=== PATIENT | male | born 1935 | race Caucasian/White ===

== ENCOUNTER 2022-07-06 00:03 | Inpatient (IN) | payer MEDICARE, OTHER ==
[~2022-07-06] VITALS: Ht 167.6 cm; Wt 61.7 kg
--- NOTE | 2022-07-06 00:08 | NUR ---
manoj from [facility], had coffee ground emesis today x 1. PT A/OX1. TOLERATING R/A WELL WITH NO RESP DISTRESS.
[2022-07-06] MEDS ORDERED: PANTOPRAZOLE 40 MG VIAL ONE (00:39)
--- NOTE | 2022-07-06 00:39 | NUR ---
RAC #18G S/L BLOOD COLLECTED AND SENT TO LAB
--- NOTE | 2022-07-06 00:40 | NUR ---
COVID ANTIGEN SWAB COLLECTED AND SENT TO LAB
[2022-07-06] MEDS ORDERED: IV NS 0.9% 1,000 ML BAG IV ONE (01:00)
[2022-07-06] MEDS ORDERED: PANTOPRAZOLE 40 MG VIAL IV ONE (01:00)
[2022-07-06 01:04] LABS: BASOPHILS % (AUTO) 0.2 % (0.0-2.0); EOSINOPHILS % (AUTO) 0.3 % (0.0-6.0); HEMATOCRIT 37 % (39-51); HEMOGLOBIN 11.6 g/dL (13.5-17.5); LYMPHOCYTES # (AUTO) 0.8 K/uL (0.8-4.8); LYMPHOCYTES % (AUTO) 16.7 % (20.0-44.0); MEAN CORPUSCULAR HGB CONC 31 g/dl (31.0-36.0); MEAN CORPUSCULAR VOLUME 81 fL (80-96); MONOCYTES # (AUTO) 0.2 K/uL (0.1-1.30); MONOCYTES % (AUTO) 4.7 % (2.0-12.0); NEUTROPHILS # (AUTO) 3.7 K/uL (1.8-8.9); NEUTROPHILS % (AUTO) 78.1 % (43.0-81.0); PLATELET COUNT (AUTO) 332 K/uL (150-450); RED BLOOD CELL COUNT(AUTO) 4.59 MIL/uL (4.5-6.0); WHITE BLOOD COUNT (AUTO) 4.8 K/uL (4.3-11.0)
[2022-07-06] MEDS ORDERED: IOHEXOL-300 100 ML VIAL IV ONE (01:11)
[2022-07-06 01:13] LABS: CALCIUM, SERUM 8.9 mg/dL (8.5-10.1); CARBON DIOXIDE 25 mmol/L (21-32); CHLORIDE 105 mmol/L (98-107); CREATININE 2.2 mg/dL (0.6-1.3); GLUCOSE 168 mg/dL (74-106); POTASSIUM 4.4 mmol/L (3.5-5.1); SODIUM SERUM 140 mmol/L (136-145); UREA NITROGEN, BLOOD 55 mg/dL (7-18)
[2022-07-06 01:24] LABS: ALANINE AMINOTRANSFERASE 7 U/L (12-78); ALBUMIN 3.1 g/dL (3.4-5.0); ALKALINE PHOSPHATASE 193 U/L (46-116); ASPARTATE AMINOTRANSFERASE 16 U/L (15-37); BILIRUBIN,DIRECT 0.5 mg/dL (0.0-0.2); BILIRUBIN,TOTAL 1.2 mg/dL (0.2-1.0); LIPASE 51 U/L (73-393); TOTAL PROTEIN, SERUM 7.3 g/dL (6.4-8.2)
--- NOTE | 2022-07-06 02:04 | NUR ---
MRSA SWAB COLLECTED AND SENT TO LAB. PATIENT'S BELONGINGS LIST DONE.
--- NOTE | 2022-07-06 02:49 | NUR ---
room 326-2
--- NOTE | 2022-07-06 03:51 | NUR ---
REPORT GIVEN TO ALEJANDRO Arizmendi RN FOR ROBBY
[2022-07-06] MEDS ORDERED: ACETAMINOPHEN 325 MG TABLET PO PRN ×2 (04:00→10:00)
[2022-07-06] MEDS ORDERED: ONDANSETRON HCL/PF 4 MG/2 ML VIAL IVP PRN (04:00)
[2022-07-06] MEDS ORDERED: MAGNESIUM HYDROXIDE 30 ML UDC PO PRN ×2 (04:00→10:00)
[2022-07-06] MEDS ORDERED: Z GUARD REMEDY 4 OZ OINT TP PRN (04:00)
[2022-07-06] MEDS ORDERED: MAG HYDROX/AL HYDROX/SIMETH 30 ML UDC PO PRN (04:00)
[2022-07-06 04:30] VITALS: BP 140/65
--- NOTE | 2022-07-06 04:32 | NUR ---
PT Transferring to room 3W 326-2. VSS. Connected Pt To POX and monitor.
--- NOTE | 2022-07-06 04:40 | NUR ---
MACHINIST CLASS B ADMITTING NOTE PATIENT TRANSFERRED FROM ER TO [facility] ROOM 326 - 2 VIA GURNEY AT 0430H; PATIENT IS A/O X 1, CONFUSED; ON ROOM AIR, TOLERATING WELL, BREATHING EVENLY AND NO RESPIRATORY DISTRESS NOTED; WITH IV ACCESS ON RAC G18 SALINE LOCK; VITAL SIGNS TAKEN; ORIENTED TO ROOM AND STAFF; HOOKED TO PUBLIC POLICY PROFESSOR, NO CARDIAC DISTRESS NOTED; SAFETY PRECAUTIONS IMPLEMENTED, BED IN LOW POSITION, LOCKED, SIDE RAILS UP X 3,CALL LIGHT WITHIN EASY REACH; WILL CONTINUE TO MONITOR THROUGHOUT SHIFT
[2022-07-06] MEDS: PANTOPRAZOLE 40 MG VIAL IV SCH ×2 (04:45→20:46)
--- NOTE | 2022-07-06 04:45 | NUR ---
SIGNALMAN NOTE PROTONIX NOT ADMINISTERED BECAUSE MEDICATION WAS GIVEN 0046H AT ER PRIOR TO ADMISSION
[2022-07-06] MEDS: IV NS 0.9% 1,000 ML IV PRN ×2 (05:54→13:59)
--- NOTE | 2022-07-06 06:39 | NUR ---
TIRE ROOM SUPERVISOR CLOSING NOTE PATIENT IS A/O X 1, CONFUSED; ON ROOM AIR, TOLERATING WELL, BREATHING EVENLY AND NO RESPIRATORY DISTRESS NOTED; WITH IV ACCESS ON RAC G18 RUNNING NORMAL SALINE X 120 ML/HR; HOOKED TO DISPATCHER CHIEF COAL SLURRY CURRENTLY READING SINUS RHYTHM WITH BBB AND INVERTED T WAVE 84 BPM, NO CARDIAC DISTRESS NOTED; SAFETY PRECAUTIONS IMPLEMENTED, BED IN LOW POSITION, LOCKED, SIDE RAILS UP X 3,CALL LIGHT WITHIN EASY REACH; WILL ENDORSE TO AM NURSE FOR ROBBY
[2022-07-06 07:03] LABS: HEMOGLOBIN 10.5 g/dL (13.5-17.5)
--- NOTE | 2022-07-06 07:51 | NUR ---
SIDE PANEL HANGER OPENING NOTE RECEIVED PT ASLEEP IN BED, EASILY AROUSED. PT IS A/OX1, CONFUSED. REORIENTED PT NEEDED. ON ROOM AIR, TOLERATING WELL. NO SOB NOTED. NOT IN ANY SIGN OF RESPIRATORY DISTRESS. PT IS ON CARDIAC TELE MONITOR WITH CURRENT READING OF SINUS RHYTHM WITH BBB, HR 86. NO C/O CARDIAC DISTRESS VOICED OUT AT THIS TIME. IV ACCESS ON RAC G#18 INTACT AND PATENT WITH NS INFUSING AT 120ML/HR. SAFETY MEASURES IN PLACE: BED IN LOWEST AND LOCKED POSITION, SIDE RAILS UPX2, BED ALARM ON, AND CALL LIGHT WITHIN REACH. WILL CONTINUE TO MONITOR PT.
[2022-07-06] MEDS ORDERED: DOCU-141 PO (08:38)
[2022-07-06] MEDS ORDERED: HYDR-4303 PO (08:38)
[2022-07-06] MEDS ORDERED: OLAN2.5T3 PO (08:38)
[2022-07-06] MEDS ORDERED: ACET-868 PO (08:38)
[2022-07-06] MEDS ORDERED: BENZ0.5T43 PO (08:38)
[2022-07-06] MEDS ORDERED: CARB1TAB21 PO (08:38)
[2022-07-06] MEDS ORDERED: ENOX40DI SQ (08:38)
[2022-07-06] MEDS ORDERED: MULT-447 PO (08:38)
[2022-07-06] MEDS ORDERED: MAGN400O6 PO (08:38)
[2022-07-06] MEDS ORDERED: AMIN30LI2 PO (08:38)
[2022-07-06] MEDS ORDERED: DIVA250T4 PO (08:38)
[2022-07-06] MEDS ORDERED: PANT40TA2 PO (08:38)
[2022-07-06] MEDS ORDERED: DONE5TAB34 PO (08:38)
[2022-07-06] MEDS ORDERED: CLOP75TA15 PO (08:38)
[2022-07-06] MEDS ORDERED: OLAN5TAB3 PO (08:38)
[2022-07-06] MEDS ORDERED: CITA10TA17 PO (08:38)
[2022-07-06] MEDS ORDERED: ATOR40TA PO (08:38)
[2022-07-06] MEDS: OLANZAPINE 2.5 MG TABLET PO SCH (11:17)
[2022-07-06] MEDS: METOPROLOL TARTRATE 50 MG TABLET PO SCH ×2 (11:18→20:51)
[2022-07-06] MEDS: ENOXAPARIN SODIUM 30 MG/0.3 ML DISP.SYRIN SQ SCH (11:19)
[2022-07-06 11:33] LABS: THYROID STIMULATING HORMONE 2.23 uIU/mL (0.358-3.74)
[2022-07-06] MEDS: DIVALPROEX SODIUM 250 MG TABLET.DR PO SCH ×4 (13:10→20:47)
[2022-07-06] MEDS: CARBIDOPA/LEVODOPA 25/100 MG 1 UDTAB PO SCH ×4 (13:11→20:46)
[2022-07-06] MEDS: DOCUSATE SODIUM 100 MG CAPSULE PO SCH ×2 (16:22→16:41)
[2022-07-06] MEDS: BENZTROPINE MESYLATE (1 MG) 1 MG TABLET PO SCH ×2 (16:22→16:41)
--- NOTE | 2022-07-06 16:46 | NUR ---
RN NOTE PT REFUSED AND SPIT OUT ALL HIS MEDICATIONS SCHEDULED AT 1700. EXPLAINED RISK AND BENEFITS, PT STILL REFUSED.
--- NOTE | 2022-07-06 19:07 | NUR ---
HOME HEALTH OUTREACH COORDINATOR CLOSING NOTE PT ASLEEP IN BED, EASILY AROUSED. PT IS A/OX1, CONFUSED. REORIENTED PT NEEDED. ON ROOM AIR, TOLERATING WELL. NO SOB NOTED. NOT IN ANY SIGN OF RESPIRATORY DISTRESS. PT IS ON CARDIAC TELE MONITOR WITH CURRENT READING OF SINUS RHYTHM WITH BBB, HR 84. NO C/O CARDIAC DISTRESS VOICED OUT AT THIS TIME. PT PULLED OUT HIS IV ACCESS. ATTEMPTED TO REINSERT BUT PT WAS COMBATIVE AND TRYING TO PUNCH THE NURSE. PT WAS ALSO TRYING TO SPIT AT THE NURSE. ENDORSED TO BUNKER WORKER NURSE TO TRY TO OFFER PT AND REINSERT IV. ALL NEEDS ATTENDED. KEPT CLEAN AND COMFORTABLE AT ALL TIMES. TURNED AND REPOSITIONED Q2HRS AND NEEDED. SAFETY MEASURES IN PLACE: BED IN LOWEST AND LOCKED POSITION, SIDE RAILS UPX2, BED ALARM ON, AND CALL LIGHT WITHIN REACH. ENDORSED TO BUNKER WORKER NURSE FOR ROBBY.
--- NOTE | 2022-07-06 19:24 | NUR ---
TELEMARKETING MANAGER OPENING NOTE RECEIVED PATIENT ON BED, AWAKE, ALERT AND ORIENTED X1 WITH CONFUSION. AFEBRILE AND NOT IN ANY FORM OF ACUTE DISTRESS. BREATHING EVEN AND NON LABORED. NO C/O PAIN OR DISCOMFORT. PER REPORT, PATIENT PULLED OUT HIS IV LINE AND BECAME COMBATIVE WHEN THE NURSE TRIED TO REINSERT ANOTHER LINE. PROVIDED SAFE AND CALM ENVIRONMENT. SAFETY MEASURES IN PLACE. KEPT BED IN LOCKED AND IN LOW POSITION. SIDE RAILS UP X2. BED ALARM ON. CALL LIGHT WITHIN EASY REACH.
[2022-07-06 20:00] VITALS: BP_SYST 118; BP_SYST 140; BP_DIAS 64; BP_DIAS 68
--- NOTE | 2022-07-06 20:55 | NUR ---
BALANCE AND HAIRSPRING ASSEMBLER NOTE TRIED TO REINSERT ANOTHER IV LINE TO ADMINISTER IV MEDICATION AND IV HYDRATION ORDERED BUT PATIENT TRIED TO PUNCH, KICK AND SPIT ON THE LICENSED NURSES DESPITE EXPLAINING PROCEDURE IN A CALM MANNER. TRIED TO CALL OTHER LICENSED NURSE TO HOLD THE PATIENT WHILE DOING REINSERTION BUT PATIENT WAS STRONG ENOUGH. NOTIFIED CIVIL DRAFTING TECHNICIAN KE AND ORDERED FOR SOFT WRIST RESTRAINTS. ORDER NOTED AND CARRIED OUT. SUCCESSFULLY REINSERTED IV LING ON L FOREARM G22, TOLERATED THE PROCEDURE WELL.
[2022-07-06] MEDS: OLANZAPINE 5 MG TABLET PO SCH (21:06)
[2022-07-06] MEDS: DONEPEZIL 5 MG TABLET PO SCH (21:06)
--- NOTE | 2022-07-06 21:30 | NUR ---
ROOM SERVICE WAITER/WAITRESS NOTE SPOKE WITH GRAND DAUGHTER BRANT TO GIVE UPDATE AND INFORM ABOUT PUTTING THE PATIENT ON SOFT WRIST RESTRAINTS ORDERED FOR SAFETY AND MEDICAL MANAGEMENT. SHE SUGGESTED TO GIVE MEDICATIONS ON TIME TO MANAGE BEHAVIOR ISSUES BUT INFORMED HER THAT PATIENT ALSO TRIES TO SPIT OUT HIS MEDICINE DESPITE EXPLAINING THE IMPORTANCE OF TAKING IT.
--- NOTE | 2022-07-06 21:50 | NUR ---
LABORER POWERHOUSE NOTE RECEIVED AN ORDER FROM DR. SHAFER TO DO STRAIGHT CATHETER IF UNABLE TO GET URINE SAMPLE FROM THE PATIENT. ORDER NOTED AND CARRIED OUT.
[2022-07-06 22:43] LABS: BILIRUBIN,URINE 1+ (NEGATIVE); COLOR,URINE DARK YELLOW (YELLOW); LEUKOCYTE ESTERASE ,URINE NEGATIVE (NEGATIVE); NITRITE, URINE NEGATIVE (NEGATIVE); PH,URINE 5.5 (5.0-8.0); PROTEIN,URINE NEGATIVE (NEGATIVE); UGLUCOSE NEGATIVE (NEGATIVE)
[2022-07-06 22:46] LABS: OCCULT BLOOD STOOL NEGATIVE (NEGATIVE)
[2022-07-06 22:47] LABS: RBC,URINE 0-2 /HPF (0-2); WBC,URINE 0-2 /HPF (0-3)
[2022-07-06 22:48] LABS: BACTERIA,URINE Rare /HPF (None Seen); CREATININE, URINE 123.3 MG/DL (30.0-125.0); SQUAMOUS EPITHELIAL CELL,UR Few /HPF (None Seen); URIC ACID CRYSTALS,URINE Many /HPF (None Seen)
[2022-07-07] VITALS: BP 144/67
[2022-07-07] MEDS: IV NS 0.9% 1,000 ML IV PRN (00:20)
[2022-07-07 04:00] VITALS: BP 142/76
--- NOTE | 2022-07-07 04:42 | NUR ---
FUNDING COORDINATOR NOTE RECEIVED CALL FROM LAB AND LATEST TROPONIN LEVEL IS 222. RELAYED TO PHARMACY HELPER [facility] AND AWAITING FOR ADVISE. PATIENT IS CURRENTLY ON LOVENOX 30MG DAILY.
--- NOTE | 2022-07-07 04:45 | NUR ---
HEALTH AND SAFETY INSPECTOR NOTE NOTIFIED EMG TECHNICIAN MATTIE ABOUT LATEST TROPONIN RESULT WITH NO NEW ORDER MADE.
[2022-07-07 05:50] LABS: BASOPHILS % (AUTO) 0.2 % (0.0-2.0); EOSINOPHILS % (AUTO) 2.7 % (0.0-6.0); HEMATOCRIT 29 % (39-51); HEMOGLOBIN 8.9 g/dL (13.5-17.5); LYMPHOCYTES # (AUTO) 0.9 K/uL (0.8-4.8); LYMPHOCYTES % (AUTO) 26.5 % (20.0-44.0); MEAN CORPUSCULAR HGB CONC 30 g/dl (31.0-36.0); MEAN CORPUSCULAR VOLUME 83 fL (80-96); MONOCYTES # (AUTO) 0.2 K/uL (0.1-1.30); MONOCYTES % (AUTO) 7.6 % (2.0-12.0); PLATELET COUNT (AUTO) 246 K/uL (150-450); RED BLOOD CELL COUNT(AUTO) 3.54 MIL/uL (4.5-6.0); WHITE BLOOD COUNT (AUTO) 3.2 K/uL (4.3-11.0)
[2022-07-07 06:05] LABS: ALANINE AMINOTRANSFERASE 11 U/L (12-78); ALBUMIN 2.5 g/dL (3.4-5.0); ALKALINE PHOSPHATASE 165 U/L (46-116); ASPARTATE AMINOTRANSFERASE 14 U/L (15-37); BILIRUBIN,TOTAL 0.9 mg/dL (0.2-1.0); CALCIUM, SERUM 8.5 mg/dL (8.5-10.1); CARBON DIOXIDE 24 mmol/L (21-32); CHLORIDE 117 mmol/L (98-107); CREATININE 1.4 mg/dL (0.6-1.3); GLUCOSE 117 mg/dL (74-106); MAGNESIUM 2.1 mg/dL (1.8-2.4); PHOSPHORUS 3.1 mg/dL (2.5-4.9); POTASSIUM 4.7 mmol/L (3.5-5.1); SODIUM SERUM 149 mmol/L (136-145); TOTAL PROTEIN, SERUM 5.9 g/dL (6.4-8.2); UREA NITROGEN, BLOOD 40 mg/dL (7-18)
--- NOTE | 2022-07-07 06:30 | NUR ---
BRICK SETTER OPERATOR CLOSING NOTE PATIENT ON BED, SLEEPING INTERMITTENTLY. AFEBRILE AND NOT IN ANY FORM OF ACUTE DISTRESS. BREATHING EVEN AND NON LABORED. NO C/O PAIN OR DISCOMFORT THROUGHOUT THE SHIFT. ON TELE MONITORING WITH CURRENT READING OF SR 64 WITH BBB. WITH IV ACCESS ON L FOREARM 22G RUNNING WITH NS AT 120ML/HR. WITH BILATERAL SOFT WRIST RESTRAINTS, NOTED WITH GOOD SKIN INTEGRITY AND CIRCULATION IN THE AREA. MEDICATED ORDERED. TURNED AND REPOSITIONED EVERY 2 HOURS AND TOLERATED TO PROMOTE PROPER CIRCULATION AND COMFORT. SAFETY MEASURES IN PLACE. KEPT BED IN LOCKED AND IN LOW POSITION. SIDE RAILS UP X2. BED ALARM ON. CALL LIGHT WITHIN EASY REACH. ALL NURSING NEEDS ATTENDED. ENDORSED TO INCOMING SHIFT FOR CONTINUITY OF CARE.
--- NOTE | 2022-07-07 07:30 | NUR ---
HYDRAULIC SPECIALIST OPENING NOTE RECEIVED PATIENT ON BED, AWAKE, ALERT AND ORIENTED X1 WITH PERIODS OF CONFUSION. ON ROOM AIR TOLERATING WELL. BREATHING EVEN AND NON LABORED. NOT IN DISTRESS. IN NO SIGNS OF PAIN AT THIS TIME VIA FLACC LEVEL OF PAIN. ON TELE MONITOR CURRENTLY READING SINUS RHYTHM WITH BBB AT 82BPM. WITH IV ACCESS AT THE LEFT FOREARM G22 WITH NS AT 120ML/HR INFUSING WELL. SAFETY MEASURES IN PLACE. KEPT BED IN LOCKED AND IN LOW POSITION. SIDE RAILS UP X2. BED ALARM ON. CALL LIGHT WITHIN EASY REACH. WILL CONTINUE TO MONITOR.
[2022-07-07 08:00] VITALS: BP 139/80
[2022-07-07] MEDS: OLANZAPINE 2.5 MG TABLET PO SCH ×4 (08:00→14:25)
[2022-07-07] MEDS ORDERED: IV NS 0.9% 1,000 ML IV PRN (08:02)
[2022-07-07] MEDS: BENZTROPINE MESYLATE (1 MG) 1 MG TABLET PO SCH ×3 (09:00→17:00)
[2022-07-07] MEDS: ENOXAPARIN SODIUM 30 MG/0.3 ML DISP.SYRIN SQ SCH (09:00)
[2022-07-07] MEDS: DIVALPROEX SODIUM 250 MG TABLET.DR PO SCH ×6 (09:00→21:20)
[2022-07-07] MEDS: DOCUSATE SODIUM 100 MG CAPSULE PO SCH ×3 (09:00→17:00)
[2022-07-07] MEDS: METOPROLOL TARTRATE 50 MG TABLET PO SCH ×3 (09:00→21:24)
[2022-07-07] MEDS: CITALOPRAM HYDROBROMIDE 10 MG TABLET PO SCH ×2 (09:00→09:16)
[2022-07-07] MEDS: CARBIDOPA/LEVODOPA 25/100 MG 1 UDTAB PO SCH ×6 (09:00→21:20)
--- NOTE | 2022-07-07 09:00 | NUR ---
RN NOTE PATIENT REFUSED TO TAKE HIS AM MEDS. WHEN OFFERED, HE BECAME COMBATIVE AND SPITS HIS MEDICATION.
[2022-07-07] MEDS: PANTOPRAZOLE 40 MG VIAL IV SCH ×2 (09:15→21:22)
[2022-07-07 12:00] VITALS: BP 144/87
[2022-07-07] MEDS: IV D5/0.45 NACL 1,000 ML IV SCH ×2 (12:13→22:39)
--- NOTE | 2022-07-07 13:00 | NUR ---
RN NOTE PATIENT REFUSED HIS 1300 MEDS AND HAS POOR APPETITE.
[2022-07-07] MEDS: SOD FERRIC GLUC 125 MG in IV NS 0.9% 100 ML IV SCH (14:25)
[2022-07-07 16:00] VITALS: BP 142/83
--- NOTE | 2022-07-07 16:00 | NUR ---
AUTO ELECTRICIAN NOTE PATIENT ON BED, AWAKE, ALERT AND ORIENTED X1, CONFUSED. ON ROOM AIR TOLERATING WELL. BREATHING EVEN AND NON LABORED. NOT IN DISTRESS. IN NO SIGNS OF PAIN AT THIS TIME VIA FLACC LEVEL OF PAIN. ON TELE MONITOR CURRENTLY READING SINUS RHYTHM WITH BBB AT 78BPM. WITH IV ACCESS AT THE LEFT FOREARM G22 WITH D5 1/2NS AT 75ML/HR INFUSING WELL. SAFETY MEASURES IN PLACE. KEPT BED IN LOCKED AND IN LOW POSITION. SIDE RAILS UP X2. BED ALARM ON. CALL LIGHT WITHIN EASY REACH. ENDORSED TO DANIELITO CASANOVA.
--- NOTE | 2022-07-07 16:30 | NUR ---
COLOR PASTE MIXING SUPERVISOR NOTE RECEIVED PATIENT ON BED, AWAKE, ALERT AND ORIENTED X1, CONFUSED. ON ROOM AIR TOLERATING WELL. BREATHING EVEN AND NON LABORED. NOT IN DISTRESS AT MOMENT. IN NO SIGNS OF PAIN AT THIS TIME. ON TELE MONITOR CURRENTLY READING SINUS RHYTHM WITH BBB AT 70S. WITH IV ACCESS AT THE LEFT FOREARM G22 WITH D5 1/2NS AT 75ML/HR INFUSING WELL. SAFETY MEASURES IN PLACE. KEPT BED IN LOCKED AND IN LOW POSITION. SIDE RAILS UP X3. BED ALARM ON. CALL LIGHT WITHIN EASY REACH. WILL CONTINUE TO MONITOR PATIENT.
--- NOTE | 2022-07-07 17:00 | NUR ---
RN NOTE PT REFUSED 1700 MEDICATIONS. EDUCATED PATIENT ON RISKS AND BENEFITS. STILL REFUSING. WILL CONTINUE TO MONITOR.
--- NOTE | 2022-07-07 18:50 | NUR ---
PSYCH COORDINATOR CLOSING NOTE PATIENT AWAKE IN BED. ALERT AND ORIENTED X1 WITH PERIODS OF CONFUSION. BREATHING EVEN AND NON LABORED. NO C/O PAIN OR DISCOMFORT THROUGHOUT THE SHIFT. ON TELE MONITORING WITH CURRENT READING OF SR. WITH IV ACCESS ON L FOREARM 22G RUNNING WITH NS AT 75ML/HR. WITH BILATERAL SOFT WRIST RESTRAINTS, NOTED WITH GOOD SKIN INTEGRITY AND CIRCULATION IN THE AREA. PT REFUSED MEDS. SPITS OUT FOODS AND AGGRESSIVE. TURNED AND REPOSITIONED EVERY 2 HOURS AND TOLERATED TO PROMOTE PROPER CIRCULATION AND COMFORT. SAFETY MEASURES IN PLACE. KEPT BED IN LOCKED AND IN LOW POSITION. SIDE RAILS UP X3. BED ALARM ON. CALL LIGHT WITHIN EASY REACH. ALL NURSING NEEDS ATTENDED. ENDORSED TO INCOMING SHIFT FOR CONTINUITY OF CARE.
--- NOTE | 2022-07-07 19:10 | NUR ---
CHIEF NURSE OPENING NOTE PATIENT IS SLEEPING IN BED, EASILY BEING AROUSED. HE IS CONFUSED. AO X 1. PATIENT IS ON ROOM AIR, NO S/S OF [id number] OR SOB; TOLERATING WELL. PATIENT HAS NO SIGNS OF HAVING PAIN AT THIS MOMENT. IV ACCESS IS AT HIS L FA, #22G, RUNNING D5 1/2 NS @75 ML/HR. IV SITE IS PATENT AND INTACT. PATIENT IS ON EXTERNAL MONITOR. ON THE TELE MONITOR, HIS HEART RHYTHM IS SINUS RHYTHM WITH BBB WITH HR AT 60s. SAFETY MEASURES IN PLACE: BED IS LOCKED AND IN LOWEST POSITION; SIDE RAILS UP X2; BED ALARM IS ON; CALL LIGHT AND TABLE ARE WITHIN EASY REACH. WILL CONTINUE MONITORING THE PATIENT AND PROVIDE THE CARE PATIENT NEEDS.
[2022-07-07 20:00] VITALS: BP 145/69
[2022-07-07] MEDS: DONEPEZIL 5 MG TABLET PO SCH (21:20)
[2022-07-07] MEDS: OLANZAPINE 5 MG TABLET PO SCH (21:21)
[2022-07-08] VITALS: BP 130/60
[2022-07-08 04:00] VITALS: BP 143/82
--- NOTE | 2022-07-08 05:57 | NUR ---
OPTICAL GOODS WORKER NOTE CALLED PATIENT'S DAUGHTER, KAILEY GARCIA, NOTIFIED HER THAT HER DAD HAS BEEN ADMITTED INTO THE [address] [place] [address] ROOM 326-1. ASKED HER TO BRING PATIENT'S MEDICATION LIST AND FEEDING INFORMATION TO THE UNIT. SHE VERBALIZED UNDERSTANDING AND WILL COME TO VISIT AT 0830 TODAY. CHARGE NURSE, DANIELLE, NOTIFIED.
--- NOTE | 2022-07-08 06:53 | NUR ---
ELECTRICAL SYSTEMS DESIGNER CLOSING NOTE PATIENT IS SLEEPING IN BED, EASILY BEING AROUSED. HE IS CONFUSED. AO X 1. PATIENT IS ON ROOM AIR, NO S/S OF DISTRESS OR SOB; TOLERATING WELL. PATIENT HAS NO SIGNS OF HAVING PAIN AT THIS MOMENT. IV ACCESS IS AT HIS L FA, #22G, RUNNING D5 1/2 NS @75 ML/HR. IV SITE IS PATENT AND INTACT. PATIENT IS ON EXTERNAL MONITOR. ON THE TELE MONITOR, HIS HEART RHYTHM IS SINUS RHYTHM WITH BBB WITH HR AT 60s. SAFETY MEASURES IN PLACE: BED IS LOCKED AND IN LOWEST POSITION; SIDE RAILS UP X2; BED ALARM IS ON; CALL LIGHT AND TABLE ARE WITHIN EASY REACH. WILL ENDORSE NEXT SHIFT NURSE FOR CONTINUING PATIENT CARE.
[2022-07-08 07:00] VITALS: BP 143/72
--- NOTE | 2022-07-08 07:06 | NUR ---
BLANKER PRESS OPERATOR OPENING NOTES RECEIVED PATIENT AWAKE IN BED A/Ox1, SUDANESE SPEAKING. ON ROOM AIR, NO S/S OF RESPIRATORY DISTRESS. ON TELE MONITORING SHOWING SINUS EFRA HR 56 W/ BBB. NO S/S OF CHEST PAIN OR DISCOMFORT. PATIENT IV ACCESS L FA #22G RUNNING D5 1/2 NS @75 ML/HR. INTACT AND PATENT. PATIENT HAS BILATERAL SOFT WRIST RESTRAINTS. CIRCULATION WNL AND SKIN INTACT. SKIN ISSUES: BILATERAL LEG SCABS, R WRIST SCABS, L HIP VICKEY. SAFETY MEASURES IN PLACE: BED LOCKED AND IN LOWEST POSITION, SIDE RAILS UPx3, CALL LIGHT WITHIN REACH, HOB ELEVATED. WILL CONTINUE TO MONITOR.
[2022-07-08 07:15] LABS: BASOPHILS % (AUTO) 0.1 % (0.0-2.0); EOSINOPHILS % (AUTO) 2.5 % (0.0-6.0); HEMATOCRIT 29 % (39-51); HEMOGLOBIN 9.2 g/dL (13.5-17.5); LYMPHOCYTES # (AUTO) 0.7 K/uL (0.8-4.8); MEAN CORPUSCULAR HGB CONC 31 g/dl (31.0-36.0); MEAN CORPUSCULAR VOLUME 82 fL (80-96); MONOCYTES # (AUTO) 0.2 K/uL (0.1-1.30); MONOCYTES % (AUTO) 6.6 % (2.0-12.0); NEUTROPHILS # (AUTO) 2.3 K/uL (1.8-8.9); NEUTROPHILS % (AUTO) 69.8 % (43.0-81.0); PLATELET COUNT (AUTO) 226 K/uL (150-450); RED BLOOD CELL COUNT(AUTO) 3.59 MIL/uL (4.5-6.0); WHITE BLOOD COUNT (AUTO) 3.3 K/uL (4.3-11.0)
[2022-07-08 07:30] LABS: ALANINE AMINOTRANSFERASE 8 U/L (12-78); ALBUMIN 2.6 g/dL (3.4-5.0); ALKALINE PHOSPHATASE 166 U/L (46-116); ASPARTATE AMINOTRANSFERASE 13 U/L (15-37); CALCIUM, SERUM 8.5 mg/dL (8.5-10.1); CARBON DIOXIDE 24 mmol/L (21-32); CHLORIDE 112 mmol/L (98-107); CREATININE 1.2 mg/dL (0.6-1.3); GLUCOSE 147 mg/dL (74-106); PHOSPHORUS 2.8 mg/dL (2.5-4.9); POTASSIUM 3.5 mmol/L (3.5-5.1); SODIUM SERUM 144 mmol/L (136-145); UREA NITROGEN, BLOOD 26 mg/dL (7-18)
[2022-07-08 08:07] LABS: *SPE A/G RATIO 0.8 (0.7-1.7); *SPE ALPHA-1-GLOBULIN 0.3 g/dL (0.0-0.4); *SPE ALPHA-2-GLOBULIN 0.7 g/dL (0.4-1.0); *SPE M-SPIKE Not Observed g/dL (Not Observed)
[2022-07-08] MEDS: OLANZAPINE 2.5 MG TABLET PO SCH ×2 (08:17→11:30)
[2022-07-08] MEDS: CARBIDOPA/LEVODOPA 25/100 MG 1 UDTAB PO SCH ×4 (08:18→20:03)
[2022-07-08] MEDS: BENZTROPINE MESYLATE (1 MG) 1 MG TABLET PO SCH ×2 (08:18→16:06)
[2022-07-08] MEDS: CITALOPRAM HYDROBROMIDE 10 MG TABLET PO SCH (08:18)
[2022-07-08] MEDS: PANTOPRAZOLE 40 MG VIAL IV SCH (08:18)
[2022-07-08] MEDS: DIVALPROEX SODIUM 250 MG TABLET.DR PO SCH ×4 (08:18→20:03)
[2022-07-08] MEDS: DOCUSATE SODIUM 100 MG CAPSULE PO SCH ×2 (08:18→16:06)
[2022-07-08] MEDS: METOPROLOL TARTRATE 50 MG TABLET PO SCH ×2 (08:22→20:03)
[2022-07-08] MEDS: ENOXAPARIN SODIUM 30 MG/0.3 ML DISP.SYRIN SQ SCH (09:00)
[2022-07-08] MEDS: IV D5/0.45 NACL 1,000 ML IV SCH (11:30)
[2022-07-08] MEDS: SOD FERRIC GLUC 125 MG in IV NS 0.9% 100 ML IV SCH (13:36)
--- NOTE | 2022-07-08 13:55 | NUR ---
RN NOTES PATIENT SLEEPING IN BED, Q15 MIN CHECKS DONE DUE TO BILATERAL SOFT WRIST RESTRAINTS. SKIN INTACT, CIRCULATION WNL. WILL CONTINUE TO MONITOR.
--- NOTE | 2022-07-08 18:57 | NUR ---
HEEL SORTER CLOSING NOTES PATIENT AWAKE IN BED A/Ox1, SURINAMESE SPEAKING. ON ROOM AIR, NO S/S OF RESPIRATORY DISTRESS. ON TELE MONITORING SHOWING SINUS EFRA HR 56 W/ BBB. NO S/S OF CHEST PAIN OR DISCOMFORT. PATIENT IV ACCESS L FA #22G RUNNING D5 1/2 NS @75 ML/HR. INTACT AND PATENT. PATIENT HAS BILATERAL SOFT WRIST RESTRAINTS. CIRCULATION WNL AND SKIN INTACT. SKIN ISSUES: BILATERAL LEG SCABS, R WRIST SCABS, L HIP VICKEY. SAFETY MEASURES MAINTAINED: BED LOCKED AND IN LOWEST POSITION, SIDE RAILS UPx3, CALL LIGHT WITHIN REACH, HOB ELEVATED. WILL ENDORSE TO NEXT SHIFT ANY ROBBY.
--- NOTE | 2022-07-08 19:30 | NUR ---
MANAGEMENT TRAINEE PROGRAM STORES OPENING NOTE RECEIVED PATIENT ON BED, ASLEEP BUT EASY TO AROUSE AND RESPONDS TO VERBAL AND TACTILE STIMULI, FAMILY AT BEDSIDE. AFEBRILE AND NOT IN ANY FORM OF ACUTE DISTRESS. BREATHING EVEN AND NON LABORED. NO C/O PAIN OR DISCOMFORT. WITH IV ACCESS ON LFA 22G RUNNING WITH D5 1/2 NS AT 75ML/HR. ON SOFT WRIST RESTRAINTS, NOTED WITH GOOD SKIN CIRCULATION AND INTEGRITY IN THE AREA. SAFETY MEASURES IN PLACE. KEPT BED IN LOCKED AND IN LOW POSITION. SIDE RAILS UP X2. BED ALARM ON. CALL LIGHT WITHIN EASY REACH.
[2022-07-08] MEDS: PANTOPRAZOLE 40 MG/PACK PACK PO SCH (20:03)
--- NOTE | 2022-07-08 20:04 | NUR ---
SUPERIOR COURT JUSTICE NOTE HELD METOPROLOL PER PROTOCOL SINCE PULSE IS >60. PER REPORT, PATIENT IS ALSO NOTED TO BE BRADYCARDIA WHEN SLEEPING/RESTING.
[2022-07-08] MEDS: OLANZAPINE 5 MG TABLET PO SCH (21:39)
[2022-07-08] MEDS: DONEPEZIL 5 MG TABLET PO SCH (21:39)
[2022-07-09] MEDS: IV D5/0.45 NACL 1,000 ML IV SCH ×2 (01:14→14:49)
--- NOTE | 2022-07-09 04:57 | NUR ---
LOGISTICS ASSOCIATE NOTE PATIENT PULLED OUT HIS IV LINE. REINSERTED ANOTHER ONE ON LEFT ANTECUBITAL 20G. TOLERATED THE PROCEDURE WELL.
--- NOTE | 2022-07-09 06:25 | NUR ---
ANIMAL CARE ASSISTANT CLOSING NOTE PATIENT ON BED, ASLEEP BUT EASY TO AROUSE AND RESPONDS TO VERBAL AND TACTILE STIMULI. AFEBRILE AND NOT IN ANY FORM OF ACUTE DISTRESS. BREATHING EVEN AND NON LABORED. NO C/O PAIN OR DISCOMFORT THROUGHOUT THE SHIFT. ON TELE MONITORING WITH CURRENT READING OF SR 72 WITH BBB. WITH IV ACCESS ON LAC G20 RUNNING WITH D5 1/2 NS AT 75ML/HR. ON SOFT WRIST RESTRAINTS, NOTED WITH GOOD SKIN CIRCULATION AND INTEGRITY IN THE AREA. MEDICATED ORDERED BUT PATIENT TRIED TO SPIT HIS MEDICATIONS, FAMILY MEMBER AT BEDSIDE AND SAID THAT THEY TOO HAVE DIFFICULTY IN GIVING MEDICATIONS WITH PATIENT AT HOME. SAFETY MEASURES IN PLACE. KEPT BED IN LOCKED AND IN LOW POSITION. SIDE RAILS UP X2. BED ALARM ON. CALL LIGHT WITHIN EASY REACH. ALL NURSING NEEDS ATTENDED. ENDORSED TO INCOMING SHIFT FOR CONTINUITY OF CARE.
[2022-07-09 06:43] LABS: BASOPHILS % (AUTO) 0.2 % (0.0-2.0); EOSINOPHILS % (AUTO) 2.6 % (0.0-6.0); HEMATOCRIT 31 % (39-51); HEMOGLOBIN 9.8 g/dL (13.5-17.5); LYMPHOCYTES # (AUTO) 0.7 K/uL (0.8-4.8); MEAN CORPUSCULAR HGB CONC 31 g/dl (31.0-36.0); MEAN CORPUSCULAR VOLUME 82 fL (80-96); MONOCYTES # (AUTO) 0.3 K/uL (0.1-1.30); MONOCYTES % (AUTO) 7.9 % (2.0-12.0); NEUTROPHILS # (AUTO) 2.3 K/uL (1.8-8.9); NEUTROPHILS % (AUTO) 69.3 % (43.0-81.0); PLATELET COUNT (AUTO) 222 K/uL (150-450); RED BLOOD CELL COUNT(AUTO) 3.84 MIL/uL (4.5-6.0); WHITE BLOOD COUNT (AUTO) 3.4 K/uL (4.3-11.0)
[2022-07-09 07:00] VITALS: BP 122/73
[2022-07-09 07:11] LABS: ALBUMIN 2.5 g/dL (3.4-5.0); BILIRUBIN,TOTAL 0.9 mg/dL (0.2-1.0); CALCIUM, SERUM 8.4 mg/dL (8.5-10.1); CREATININE 1.1 mg/dL (0.6-1.3); MAGNESIUM 1.7 mg/dL (1.8-2.4); POTASSIUM 3.4 mmol/L (3.5-5.1); TOTAL PROTEIN, SERUM 5.9 g/dL (6.4-8.2)
--- NOTE | 2022-07-09 07:26 | NUR ---
FOOD BEVERAGE SUPERVISOR OPENING NOTE RECEIVED PT ASLEEP IN BED, EASILY AROUSED. PT IS A/OX1, CONFUSED. REORIENTED PT NEEDED. ON ROOM AIR, TOLERATING WELL. NO SOB NOTED. NOT IN ANY SIGN OF RESPIRATORY DISTRESS. PT IS ON CARDIAC TELE MONITOR WITH CURRENT READING OF SINUS RHYTHM WITH BBB, HR 75. NO C/O CARDIAC DISTRESS VOICED OUT AT THIS TIME. PT NOTED WITH BILATERAL SOFT WRIST RESTRAINTS ORDERED. GOOD CIRCULATION NOTED AND NO SKIN ISSUS. IV ACCESS ON LAC G#20 INTACT AND PATENT WITH D5 1/2 NS INFUSING AT 75ML/HR. SAFETY MEASURES IN PLACE: BED IN LOWEST AND LOCKED POSITION, SIDE RAILS UPX2, BED ALARM ON, AND CALL LIGHT WITHIN REACH. WILL CONTINUE TO MONITOR PT.
[2022-07-09] MEDS ORDERED: POTASSIUM CHLORIDE 20 MEQ TAB.PRT.SR PO SCH (08:00)
[2022-07-09] MEDS: OLANZAPINE 2.5 MG TABLET PO SCH ×2 (08:13→12:00)
[2022-07-09] MEDS: Magnesium 1GM/D5W 100ML PREMIX 100 ML IV SCH ×2 (08:13→09:13)
[2022-07-09] MEDS: ENOXAPARIN SODIUM 30 MG/0.3 ML DISP.SYRIN SQ SCH (09:00)
[2022-07-09] MEDS: CARBIDOPA/LEVODOPA 25/100 MG 1 UDTAB PO SCH ×4 (09:14→21:00)
[2022-07-09] MEDS: DIVALPROEX SODIUM 250 MG TABLET.DR PO SCH ×4 (09:14→21:00)
[2022-07-09] MEDS: METOPROLOL TARTRATE 50 MG TABLET PO SCH ×2 (09:14→21:00)
[2022-07-09] MEDS: DOCUSATE SODIUM 100 MG CAPSULE PO SCH ×2 (09:15→17:00)
[2022-07-09] MEDS: BENZTROPINE MESYLATE (1 MG) 1 MG TABLET PO SCH ×2 (09:15→17:00)
[2022-07-09] MEDS: PANTOPRAZOLE 40 MG/PACK PACK PO SCH ×2 (09:15→21:00)
[2022-07-09] MEDS: CITALOPRAM HYDROBROMIDE 10 MG TABLET PO SCH (09:15)
[2022-07-09 12:00] VITALS: BP 134/72
--- NOTE | 2022-07-09 12:10 | NUR ---
N NOTE PT REFUSED HIS ZYPREXA MEDICATION SCHEDULED AT 1200. EXPLAINED RISK AND BENEFITS, PT STILL REFUSED.
--- NOTE | 2022-07-09 13:30 | NUR ---
RN NOTE NOTIFIED PHARMACIST THE PT'S FERRLECIT IV MEDICATION IS READY TO BE HANGED. PER PHARMACIST ZI, THEY WILL MIX THE MEDICATION NOW.
[2022-07-09] MEDS: SOD FERRIC GLUC 125 MG in IV NS 0.9% 100 ML IV SCH ×2 (14:00→15:44)
--- NOTE | 2022-07-09 14:52 | NUR ---
RN NOTE PT'S FERRLECIT IV MEDICATION NOT ADMINISTERED. FERRLECIT MEDICATIONS IS NOT AVAILABLE. FOLLOWED UP WITH THE PHARMACIST ZI, THEY WILL SEND THE MEDICATION. AWAITING FOR THE MEDICATION AT THIS TIME.
--- NOTE | 2022-07-09 15:44 | NUR ---
RN NOTE PT'S FERRLECIT IV MEDICATION JUST RECEIVED FROM THE PHARMACY AND ADMINISTERED TO THE PT ORDERED.
[2022-07-09 16:00] VITALS: BP 132/67
--- NOTE | 2022-07-09 18:38 | NUR ---
SOFTWARE SYSTEMS ARCHITECT CLOSING NOTE PT ASLEEP IN BED, EASILY AROUSED. PT IS A/OX1, CONFUSED. REORIENTED PT NEEDED. ON ROOM AIR, TOLERATING WELL. NO SOB NOTED. NOT IN ANY SIGN OF RESPIRATORY DISTRESS. PT IS ON CARDIAC TELE MONITOR WITH CURRENT READING OF SINUS RHYTHM WITH BBB, HR 80. NO C/O CARDIAC DISTRESS VOICED OUT AT THIS TIME. PT NOTED WITH BILATERAL SOFT WRIST RESTRAINTS ORDERED. GOOD CIRCULATION NOTED AND NO SKIN ISSUS. IV ACCESS ON LAC G#20 INTACT AND PATENT WITH D5 1/2 NS INFUSING AT 75ML/HR. ALL NEEDS ATTENDED. KEPT CLEAN AND COMFORTABLE AT ALL TIMES. TURNED AND REPOSITIONED Q2HRS AND NEEDED. PT WILL HAVE AN EGD PROCEDURE BY DR. IRMA SUAZO. SAFETY MEASURES IN PLACE: BED IN LOWEST AND LOCKED POSITION, SIDE RAILS UPX2, BED ALARM ON, AND CALL LIGHT WITHIN REACH. WILL ENDORSE TO TITLE DEPARTMENT MANAGER NURSE IN REGARDS TO THE EGD PROCEDURE SCHEDULED TONIGHT AND FOR ROBBY.
--- NOTE | 2022-07-09 19:59 | NUR ---
WEB COORDINATOR OPENING NOTES: PATIENT LEFT AT 1915 FOR EGD, ON STABLE CONDITION, PN NPO SINCE 9AM ON BILATERAL SOFT WRIST RESTRAINT, IV LINE AT LAC#20 WITH ONGOING D5 1/2 NSS@75ML/HR INFUSING WELL, ON TELE SB-53 WITH BBB AND 1ST DEGREE AV BLOCK, PATIENT KEPT CLEAN AND DRY ALL NEEDS MET WILL CONTINUE TO MONITOR.
[2022-07-09] MEDS: OLANZAPINE 5 MG TABLET PO SCH (22:00)
[2022-07-09] MEDS: DONEPEZIL 5 MG TABLET PO SCH (22:00)
--- NOTE | 2022-07-09 22:00 | NUR ---
RN NOTES: PATIENT CAME BACK FROM OR POST EGD, SLEEPING AROUSABLE TO VERBAL STIMULI, NO COMPLAIN OF PAIN AND DISCOMFORT AT THIS TIME,, V/S ARE WITHIN NORMAL LIMITS BP- 104/73, HR-72, TEMP-98.3, O2 -97% ROOM AIR, RR-20, WITH ORDER TO RESUME DIET, SPOKE TO NARAYAN RAJAN AND INFORM THAT LAST DIET WAS CLEAR LIQUID, AND ORDER TO RESUME AND ADVANCE TOLERATED, PATIENT KEPT CLEAN AND DRY ALL NEEDS MET WILL CONTINUE TO MONITOR
--- NOTE | 2022-07-09 22:37 | NUR ---
RN NOTES: DUE MEDICATION PO NOT GIVEN PATIENT IS TOO SLEEPY AND BARELY OPENS EYES,
[2022-07-10] VITALS: BP 101/72
[2022-07-10 04:00] VITALS: BP 120/60
[2022-07-10] MEDS: IV D5/0.45 NACL 1,000 ML IV SCH ×2 (04:51→17:48)
[2022-07-10 06:14] LABS: BASOPHILS % (AUTO) 0.2 % (0.0-2.0); EOSINOPHILS % (AUTO) 1.9 % (0.0-6.0); HEMATOCRIT 29 % (39-51); HEMOGLOBIN 9.1 g/dL (13.5-17.5); LYMPHOCYTES # (AUTO) 0.6 K/uL (0.8-4.8); LYMPHOCYTES % (AUTO) 14.9 % (20.0-44.0); MEAN CORPUSCULAR HGB CONC 32 g/dl (31.0-36.0); MEAN CORPUSCULAR VOLUME 81 fL (80-96); MONOCYTES # (AUTO) 0.2 K/uL (0.1-1.30); MONOCYTES % (AUTO) 5.5 % (2.0-12.0); NEUTROPHILS % (AUTO) 77.5 % (43.0-81.0); PLATELET COUNT (AUTO) 193 K/uL (150-450); RED BLOOD CELL COUNT(AUTO) 3.55 MIL/uL (4.5-6.0); WHITE BLOOD COUNT (AUTO) 3.9 K/uL (4.3-11.0)
[2022-07-10 06:29] LABS: ALANINE AMINOTRANSFERASE 8 U/L (12-78); ALBUMIN 2.3 g/dL (3.4-5.0); ALKALINE PHOSPHATASE 164 U/L (46-116); ASPARTATE AMINOTRANSFERASE 10 U/L (15-37); BILIRUBIN,TOTAL 1.1 mg/dL (0.2-1.0); CALCIUM, SERUM 8.2 mg/dL (8.5-10.1); CARBON DIOXIDE 24 mmol/L (21-32); CHLORIDE 109 mmol/L (98-107); GLUCOSE 157 mg/dL (74-106); MAGNESIUM 1.8 mg/dL (1.8-2.4); PHOSPHORUS 2.8 mg/dL (2.5-4.9); POTASSIUM 3.2 mmol/L (3.5-5.1); SODIUM SERUM 142 mmol/L (136-145); TOTAL PROTEIN, SERUM 5.5 g/dL (6.4-8.2); UREA NITROGEN, BLOOD 11 mg/dL (7-18)
--- NOTE | 2022-07-10 07:27 | NUR ---
MS RN CLOSING NOTES: PATIENT SLEEP IN BED COMFORTABLY, BED IN LOW POSITION, CALL LIGHTS WITHIN REACH, NO COMPLAIN OF PAIN AND DISCOMFORT AT THIS TIME,ON ON ROOM AIR SATURATING WELL, PATIENT IS ON TELE [id number] WITH BBB AND PAC, ON BEARD CATHETER- 400CC URINE OUTPUT, PATIENT KEPT CLEAN AND DRY ALL NEEDS MET ENDORSE TO INCOMING SHIFT.
--- NOTE | 2022-07-10 07:28 | NUR ---
ASSOCIATE DENTIST OPENING NOTE RECEIVED PT ASLEEP IN BED, EASILY AROUSED. PT IS A/OX1, CONFUSED. REORIENTED PT NEEDED. ON ROOM AIR, TOLERATING WELL. NO SOB NOTED. NOT IN ANY SIGN OF RESPIRATORY DISTRESS. PT IS ON CARDIAC TELE MONITOR WITH CURRENT READING OF SINUS RHYTHM WITH BBB AND PAC'S, HR 74. NO C/O CARDIAC DISTRESS VOICED OUT AT THIS TIME. PT NOTED WITH BILATERAL SOFT WRIST RESTRAINTS ORDERED. GOOD CIRCULATION NOTED AND NO SKIN ISSUS. IV ACCESS ON LAC G#20 INTACT AND PATENT WITH D5 1/2 NS INFUSING AT 75ML/HR. SAFETY MEASURES IN PLACE: BED IN LOWEST AND LOCKED POSITION, SIDE RAILS UPX2, BED ALARM ON, AND CALL LIGHT WITHIN REACH. WILL CONTINUE TO MONITOR PT.
[2022-07-10] MEDS: OLANZAPINE 2.5 MG TABLET PO SCH ×2 (08:00→12:00)
--- NOTE | 2022-07-10 08:45 | NUR ---
RN NOTE PT REFUSED HIS ZYPREXA MEDICATION SCHEDULED AT 0800. EXPLAINED RISK AND BENEFITS, PT STILL REFUSED.
[2022-07-10] MEDS: ENOXAPARIN SODIUM 30 MG/0.3 ML DISP.SYRIN SQ SCH (09:00)
[2022-07-10] MEDS: CARBIDOPA/LEVODOPA 25/100 MG 1 UDTAB PO SCH ×5 (09:00→22:15)
[2022-07-10] MEDS: CITALOPRAM HYDROBROMIDE 10 MG TABLET PO SCH (09:00)
[2022-07-10] MEDS: METOPROLOL TARTRATE 50 MG TABLET PO SCH ×3 (09:00→22:14)
[2022-07-10] MEDS: BENZTROPINE MESYLATE (1 MG) 1 MG TABLET PO SCH ×2 (09:00→17:00)
[2022-07-10] MEDS: DOCUSATE SODIUM 100 MG CAPSULE PO SCH ×2 (09:00→17:00)
[2022-07-10] MEDS: PANTOPRAZOLE 40 MG/PACK PACK PO SCH ×3 (09:00→22:15)
[2022-07-10] MEDS: DIVALPROEX SODIUM 250 MG TABLET.DR PO SCH ×5 (09:00→22:14)
--- NOTE | 2022-07-10 09:26 | NUR ---
RN NOTE PT REFUSED ALL HIS MEDICATIONS SCHEDULED AT 0900. EXPLAINED RISK AND BENEFITS, PT STILL REFUSED.
[2022-07-10] MEDS ORDERED: POTASSIUM CHLORIDE 20 MEQ TAB.PRT.SR PO SCH (11:00)
--- NOTE | 2022-07-10 12:22 | NUR ---
RN NOTE PT REFUSED HIS ZYPREXA MEDICATION SCHEDULED AT 1200. EXPLAINED RISK AND BENEFITS, PT STILL REFUSED.
[2022-07-10] MEDS: POTASSIUM CL. PREMIX PERIPHER. 50 ML IV SCH ×4 (12:31→15:36)
--- NOTE | 2022-07-10 13:30 | NUR ---
RN NOTE NOTIFIED PHARMACIST THE PT'S FERRLECIT IV MEDICATION IS READY TO BE HANGED. PER PHARMACIST, THEY WILL MIX THE MEDICATION NOW.
[2022-07-10] MEDS: SOD FERRIC GLUC 125 MG in IV NS 0.9% 100 ML IV SCH ×2 (14:00→14:24)
--- NOTE | 2022-07-10 14:20 | NUR ---
RN NOTE PT'S FERRLECIT IV MEDICATION NOT ADMINISTERED. FERRLECIT MEDICATIONS IS NOT AVAILABLE. FOLLOWED UP WITH THE PHARMACIST, THEY WILL SEND THE MEDICATION. AWAITING FOR THE MEDICATION AT THIS TIME.
--- NOTE | 2022-07-10 14:25 | NUR ---
RN NOTE PT'S FERRLECIT IV MEDICATION JUST RECEIVED FROM THE PHARMACY AND ADMINISTERED TO THE PT ORDERED.
--- NOTE | 2022-07-10 18:37 | NUR ---
EXECUTIVE ADMINISTRATIVE ASST CLOSING NOTE PT ASLEEP IN BED, EASILY AROUSED. PT IS A/OX1, CONFUSED. REORIENTED PT NEEDED. ON ROOM AIR, TOLERATING WELL. NO SOB NOTED. NOT IN ANY SIGN OF RESPIRATORY DISTRESS. PT IS ON CARDIAC TELE MONITOR WITH CURRENT READING OF SINUS RHYTHM WITH BBB AND PAC'S, HR 80. NO C/O CARDIAC DISTRESS VOICED OUT AT THIS TIME. PT REMAINS ON BILATERAL SOFT WRIST RESTRAINTS ORDERED. GOOD CIRCULATION NOTED AND NO SKIN ISSUES. IV ACCESS ON LAC G#20 INTACT AND PATENT WITH D5 1/2 NS INFUSING AT 75ML/HR. ALL NEEDS ATTENDED. KEPT CLEAN AND COMFORTABLE AT ALL TIMES. TURNED AND REPOSITIONED Q2HRS AND NEEDED. SAFETY MEASURES IN PLACE: BED IN LOWEST AND LOCKED POSITION, SIDE RAILS UPX2, BED ALARM ON, AND CALL LIGHT WITHIN REACH. WILL ENDORSE TO PRECISION JIG GRINDER NURSE FOR ROBBY.
--- NOTE | 2022-07-10 19:20 | NUR ---
RN Note Spoke to animal care technician who said he had jewelry sales coordinator speak to patient in [facility]. Per health and safety technician patient agreed to MRCP in AM. Requested that patient be NPO post midnight.
[2022-07-10 20:00] VITALS: BP 136/74
--- NOTE | 2022-07-10 20:08 | NUR ---
RN Opening Notes Received pt in bed, asleep, awakens to verbal stimuli. AOx1. On RA and tolerating well. No SOB noted. No s/sx of respiratory distress noted. Tele monitor detects SR with 1st degree AV block and BBB with rate of 69. Safety precautions in place: bed in lowest, locked position, siderails upX2, and brakes on. Table and call light within reach. All needs met at this time.
[2022-07-10] MEDS: OLANZAPINE 5 MG TABLET PO SCH ×2 (21:56→22:00)
[2022-07-10] MEDS: DONEPEZIL 5 MG TABLET PO SCH ×2 (21:56→22:00)
--- NOTE | 2022-07-10 22:15 | NUR ---
RN NOTES Went to administer scheduled medications and patient became agitated and refused to take medications. Spit out apple sauce. Attempted to administer with juice but patient was still agitated and waving arms around.
[2022-07-11 01:15] VITALS: BP 120/79
--- NOTE | 2022-07-11 01:15 | NUR ---
RN NOTES Please disregard 0115 vitals. wrong patient.
[2022-07-11] MEDS: IV D5/0.45 NACL 1,000 ML IV SCH ×2 (06:13→20:11)
[2022-07-11 06:44] LABS: BASOPHILS % (AUTO) 0.2 % (0.0-2.0); EOSINOPHILS % (AUTO) 2.8 % (0.0-6.0); HEMATOCRIT 28 % (39-51); HEMOGLOBIN 8.9 g/dL (13.5-17.5); LYMPHOCYTES # (AUTO) 0.8 K/uL (0.8-4.8); LYMPHOCYTES % (AUTO) 23.3 % (20.0-44.0); MEAN CORPUSCULAR HGB CONC 32 g/dl (31.0-36.0); MEAN CORPUSCULAR VOLUME 82 fL (80-96); MONOCYTES # (AUTO) 0.2 K/uL (0.1-1.30); MONOCYTES % (AUTO) 7.5 % (2.0-12.0); NEUTROPHILS # (AUTO) 2.2 K/uL (1.8-8.9); NEUTROPHILS % (AUTO) 66.2 % (43.0-81.0); PLATELET COUNT (AUTO) 187 K/uL (150-450); RED BLOOD CELL COUNT(AUTO) 3.47 MIL/uL (4.5-6.0); WHITE BLOOD COUNT (AUTO) 3.3 K/uL (4.3-11.0)
--- NOTE | 2022-07-11 06:51 | NUR ---
RN Closing Notes Pt in bed, asleep, awakens to verbal stimuli. AOx1. On RA and tolerating well. No SOB noted. No s/sx of respiratory distress noted. Tele monitor detects SR with 1st degree AV block and BBB with rate of 69. All orders carried out. All needs met. Pt kept clean and dry. Safety precautions in place: bed in lowest, locked position, siderails upX2, and brakes on. Table and call light within reach. Will endorse to oncoming shift for ROBBY.
[2022-07-11 07:15] LABS: ALANINE AMINOTRANSFERASE 6 U/L (12-78); ALBUMIN 2.3 g/dL (3.4-5.0); ALKALINE PHOSPHATASE 164 U/L (46-116); ASPARTATE AMINOTRANSFERASE 10 U/L (15-37); BILIRUBIN,TOTAL 1.3 mg/dL (0.2-1.0); CALCIUM, SERUM 8.2 mg/dL (8.5-10.1); CARBON DIOXIDE 24 mmol/L (21-32); CHLORIDE 108 mmol/L (98-107); GLUCOSE 145 mg/dL (74-106); MAGNESIUM 1.7 mg/dL (1.8-2.4); PHOSPHORUS 2.6 mg/dL (2.5-4.9); POTASSIUM 3.4 mmol/L (3.5-5.1); SODIUM SERUM 139 mmol/L (136-145); TOTAL PROTEIN, SERUM 5.5 g/dL (6.4-8.2); UREA NITROGEN, BLOOD 9 mg/dL (7-18)
--- NOTE | 2022-07-11 07:30 | NUR ---
RN OPENING NOTE RECEIVED PATIENT IN BED, ASLEEP. NO SIGNS OF ACUTE DISTRESS NOTED. ON ROOM AIR, TOLERATING WELL.. NO SIGNS OF ACUTE DISTRESS NOTED. ON TELE MONITORING SHOWING SINUS RHYTHM WITH 1ST DEGREE AV BLOCK WITH BBB, HR @65. NOTED WITH IV ACCESS ON LEFT AC #20G, INTACT AND PATENT, RUNNING D5 1/2 NS @75ML/HR. WITH BILATERAL SOFT WRIST RESTRAINT IN PLACE. SAFETY MEASURE IN PLACE. BED IN LOW AND LOCKED POSITION, SIDE RAILS UP X2, CALL LIGHT PLACED WITHIN EASY REACH. WILL CONTINUE TO MONITOR PATIENT.
[2022-07-11] MEDS: OLANZAPINE 2.5 MG TABLET PO SCH ×2 (08:00→12:01)
[2022-07-11] MEDS: ENOXAPARIN SODIUM 30 MG/0.3 ML DISP.SYRIN SQ SCH (09:00)
[2022-07-11] MEDS: DIVALPROEX SODIUM 250 MG TABLET.DR PO SCH ×4 (09:00→21:00)
[2022-07-11] MEDS: BENZTROPINE MESYLATE (1 MG) 1 MG TABLET PO SCH ×2 (09:00→16:10)
[2022-07-11] MEDS: CARBIDOPA/LEVODOPA 25/100 MG 1 UDTAB PO SCH ×4 (09:00→21:00)
[2022-07-11] MEDS: METOPROLOL TARTRATE 50 MG TABLET PO SCH ×2 (09:00→21:00)
[2022-07-11] MEDS: CITALOPRAM HYDROBROMIDE 10 MG TABLET PO SCH (09:00)
[2022-07-11] MEDS: PANTOPRAZOLE 40 MG/PACK PACK PO SCH ×2 (09:00→21:00)
[2022-07-11] MEDS: DOCUSATE SODIUM 100 MG CAPSULE PO SCH ×2 (09:00→16:10)
--- NOTE | 2022-07-11 09:00 | NUR ---
RN NOTE PT REFUSED ALL HIS MEDICATIONS SCHEDULED AT 0900. EXPLAINED RISK AND BENEFITS, PT STILL REFUSED.
[2022-07-11] MEDS: Magnesium 1GM/D5W 100ML PREMIX 100 ML IV SCH ×2 (10:00→11:01)
[2022-07-11] MEDS: POTASSIUM CL. PREMIX PERIPHER. 50 ML IV SCH ×2 (10:00→11:02)
[2022-07-11] MEDS: SOD FERRIC GLUC 125 MG in IV NS 0.9% 100 ML IV SCH (14:19)
--- NOTE | 2022-07-11 18:50 | NUR ---
RN CLOSING NOTE PATIENT IN BED, ASLEEP. EASILY AROUSED. NO SIGNS OF ACUTE DISTRESS NOTED. ON ROOM AIR, TOLERATING WELL. NO SIGNS OF ACUTE DISTRESS NOTED. ON TELE MONITORING SHOWING SINUS EFRA WITH 1ST DEGREE AV BLOCK WITH BBB, HR @53. IV ACCESS ON LEFT AC #20G, INTACT AND PATENT, RUNNING D5 1/2 NS @75ML/HR. WITH BILATERAL SOFT WRIST RESTRAINT IN PLACE. SAFETY MEASURE IN PLACE. BED IN LOW AND LOCKED POSITION, SIDE RAILS UP X2, CALL LIGHT PLACED WITHIN EASY REACH. WILL ENDORSE TO NEXT SHIFT FOR CONTINUITY OF CARE.
[2022-07-11] MEDS: DONEPEZIL 5 MG TABLET PO SCH (21:43)
[2022-07-11] MEDS: OLANZAPINE 5 MG TABLET PO SCH (21:44)
[2022-07-12 04:00] VITALS: BP 150/74
--- NOTE | 2022-07-12 06:55 | NUR ---
RN Closing Notes Pt in bed, asleep, awakens to verbal stimuli. AOx1. On RA and tolerating well. No SOB noted. No s/sx of respiratory distress noted. Tele monitor detects SR with 1st degree AV block and BBB with rate of 69. IV access in LAC #20G running D5 1/2NS @ 75 mL/hr. All orders carried out. All needs met. Pt kept clean and dry. Safety precautions in place: bed in lowest, locked position, siderails upX2, and brakes on. Table and call light within reach. Will endorse to oncoming shift for ROBBY.
[2022-07-12 07:15] LABS: BASOPHILS % (AUTO) 0.6 % (0.0-2.0); EOSINOPHILS % (AUTO) 3.1 % (0.0-6.0); HEMATOCRIT 29 % (39-51); HEMOGLOBIN 9.1 g/dL (13.5-17.5); LYMPHOCYTES # (AUTO) 0.8 K/uL (0.8-4.8); LYMPHOCYTES % (AUTO) 23.1 % (20.0-44.0); MEAN CORPUSCULAR HGB CONC 32 g/dl (31.0-36.0); MEAN CORPUSCULAR VOLUME 82 fL (80-96); MONOCYTES # (AUTO) 0.3 K/uL (0.1-1.30); MONOCYTES % (AUTO) 9.2 % (2.0-12.0); NEUTROPHILS # (AUTO) 2.2 K/uL (1.8-8.9); PLATELET COUNT (AUTO) 168 K/uL (150-450); RED BLOOD CELL COUNT(AUTO) 3.54 MIL/uL (4.5-6.0); WHITE BLOOD COUNT (AUTO) 3.4 K/uL (4.3-11.0)
[2022-07-12 07:48] LABS: ALBUMIN 2.2 g/dL (3.4-5.0); ALKALINE PHOSPHATASE 166 U/L (46-116); ASPARTATE AMINOTRANSFERASE 9 U/L (15-37); BILIRUBIN,TOTAL 1.3 mg/dL (0.2-1.0); CALCIUM, SERUM 8.1 mg/dL (8.5-10.1); CARBON DIOXIDE 26 mmol/L (21-32); CHLORIDE 106 mmol/L (98-107); GLUCOSE 134 mg/dL (74-106); MAGNESIUM 1.7 mg/dL (1.8-2.4); PHOSPHORUS 2.6 mg/dL (2.5-4.9); POTASSIUM 3.5 mmol/L (3.5-5.1); SODIUM SERUM 138 mmol/L (136-145); TOTAL PROTEIN, SERUM 5.3 g/dL (6.4-8.2); UREA NITROGEN, BLOOD 7 mg/dL (7-18)
--- NOTE | 2022-07-12 07:59 | NUR ---
RN OPENING NOTE RECEIVED PATIENT IN BED, AO X 1 CONFUSED. ABLE TO RESPONDS ALL STIMULI. RESPIRATORY EVEN AND UNLABORED IN ROOM AIR. IN NO ACUTE DISTRESS OBSERVED. SKIN IS WARM TO TOUCH, KEEP CLEAN/DRY. KEPT ELEVATED HOB FOR ASPIRATION PRECAUTION/ENSURE AIRWAY, ALSO LOWEST BED POSITIONED. BED ALARM IS ON AT ALL THE TIME FOR SAFETY. CALL LIGHT WITHIN REACH, WILL CONTINUE TO MONITOR.
[2022-07-12 08:00] VITALS: BP 154/72
[2022-07-12] MEDS: OLANZAPINE 2.5 MG TABLET PO SCH ×2 (08:00→12:00)
[2022-07-12 08:08] LABS: ALANINE AMINOTRANSFERASE < 6 U/L (12-78)
[2022-07-12] MEDS: CARBIDOPA/LEVODOPA 25/100 MG 1 UDTAB PO SCH ×4 (09:00→22:00)
[2022-07-12] MEDS: BENZTROPINE MESYLATE (1 MG) 1 MG TABLET PO SCH ×2 (09:00→17:02)
[2022-07-12] MEDS: CITALOPRAM HYDROBROMIDE 10 MG TABLET PO SCH (09:00)
[2022-07-12] MEDS: ENOXAPARIN SODIUM 30 MG/0.3 ML DISP.SYRIN SQ SCH (09:00)
[2022-07-12] MEDS: DIVALPROEX SODIUM 250 MG TABLET.DR PO SCH ×4 (09:00→22:00)
[2022-07-12] MEDS: DOCUSATE SODIUM 100 MG CAPSULE PO SCH ×2 (09:00→17:02)
[2022-07-12] MEDS: PANTOPRAZOLE 40 MG/PACK PACK PO SCH ×2 (09:00→22:03)
[2022-07-12] MEDS: METOPROLOL TARTRATE 50 MG TABLET PO SCH ×2 (09:00→22:02)
--- NOTE | 2022-07-12 09:13 | NUR ---
PATIENT'S DX IS GI BLEED, HELD LOVENOX.
[2022-07-12] MEDS: IV D5/0.45 NACL 1,000 ML IV SCH (09:29)
[2022-07-12] MEDS ORDERED: IV D5/0.45 NACL 1,000 ML IV PRN (10:57)
[2022-07-12] MEDS: Magnesium 1GM/D5W 100ML PREMIX 100 ML IV SCH ×2 (11:37→12:24)
[2022-07-12 12:00] VITALS: BP 127/71
[2022-07-12] MEDS ORDERED: LORAZEPAM 0.5 MG TABLET PO ONE (13:00)
--- NOTE | 2022-07-12 13:02 | NUR ---
THE PATIENT HAS BEEN ORDERED MRCP, HOWEVER, PATIENT CONFUSED AND REFUSED YESTERDAY. RECIEVED NEW ORDER ATIVAN 0.5 MG X 1 DUE TO FAMILY MEMBER REQUESTED TO GIVE ATIVAN BEFORE PATIENT START MRCP TODAY. NOTED AND CARRIED OUT.
[2022-07-12 16:00] VITALS: BP 120/60
--- NOTE | 2022-07-12 17:37 | NUR ---
RN CLOSING NOTE PATIENT RESTING IN BED. IN NO ACUTE DISTRESS OBSERVED. RESPIRATORY EVEN AND UNLABORED IN ROOM AIR. IN NO RESPIRATORY DISTRESS OBSERVED. SKIN IS WARM TO TOUCH KEEP CLEAN/DRY. PATIENT HAS BEEN DONE FOR MRI ABDOMEN AND GOLD HERNANDEZ BEING AWARE OF THE RESULT, AND STATED "NO PLAN OF SURGERY." KEPT ELEVATED HOB FOR ENSURE AIRWAY/ASPIRATION PRECAUTION, AND LOWEST BED POSITION. BED ALARM IS ON AT ALL THE TIME FOR SAFETY. CALL LIGHT WITHIN REACH, WILL ENDORSE ACCOUNTING FILE CLERK.
--- NOTE | 2022-07-12 19:50 | NUR ---
SITE FOREMAN OPENING NOTE RECEIVED PATIENT IN BED. PT A/O X 1, CONFUSED, RESPONSIVE TO TACTILE, AND VERBAL STIMULI. RESPIRATIONS EVEN AND UNLABORED, ON ROOM AIR, AND TOLERATING ROOM AIR WELL. NO ACUTE DISTRESS OBSERVED. PT ON TELE MONITOR READING SR WITH BBB. SKIN IS WARM TO TOUCH, KEEP CLEAN/DRY. HOB ELEVATED FOR ASPIRATION PRECAUTION. SAFETY MEASURES IN PLACE: BED IN LOWEST POSITION, SIDE RAILS UP X2, CALL LIGHT WITHIN REACH. WILL CONTINUE TO MONITOR PT.
[2022-07-12 20:00] VITALS: BP 121/65
[2022-07-12] MEDS: OLANZAPINE 5 MG TABLET PO SCH (22:00)
[2022-07-12] MEDS: DONEPEZIL 5 MG TABLET PO SCH (22:03)
[2022-07-13] VITALS (8 sets, daily range): BP systolic 102–155; BP diastolic 62–74
[2022-07-13 06:11] LABS: BASOPHILS % (AUTO) 0.2 % (0.0-2.0); EOSINOPHILS % (AUTO) 2.3 % (0.0-6.0); HEMATOCRIT 31 % (39-51); HEMOGLOBIN 9.8 g/dL (13.5-17.5); LYMPHOCYTES # (AUTO) 0.9 K/uL (0.8-4.8); LYMPHOCYTES % (AUTO) 23.8 % (20.0-44.0); MEAN CORPUSCULAR HGB CONC 32 g/dl (31.0-36.0); MEAN CORPUSCULAR VOLUME 82 fL (80-96); MONOCYTES # (AUTO) 0.3 K/uL (0.1-1.30); MONOCYTES % (AUTO) 8.2 % (2.0-12.0); NEUTROPHILS # (AUTO) 2.4 K/uL (1.8-8.9); NEUTROPHILS % (AUTO) 65.5 % (43.0-81.0); PLATELET COUNT (AUTO) 173 K/uL (150-450); RED BLOOD CELL COUNT(AUTO) 3.74 MIL/uL (4.5-6.0); WHITE BLOOD COUNT (AUTO) 3.7 K/uL (4.3-11.0)
[2022-07-13 06:32] LABS: ALANINE AMINOTRANSFERASE < 6 U/L (12-78); ALBUMIN 2.4 g/dL (3.4-5.0); ALKALINE PHOSPHATASE 194 U/L (46-116); ASPARTATE AMINOTRANSFERASE 12 U/L (15-37); BILIRUBIN,TOTAL 1.6 mg/dL (0.2-1.0); CALCIUM, SERUM 8.3 mg/dL (8.5-10.1); CARBON DIOXIDE 25 mmol/L (21-32); CHLORIDE 103 mmol/L (98-107); CREATININE 1.1 mg/dL (0.6-1.3); GLUCOSE 109 mg/dL (74-106); MAGNESIUM 1.8 mg/dL (1.8-2.4); PHOSPHORUS 2.8 mg/dL (2.5-4.9); POTASSIUM 3.5 mmol/L (3.5-5.1); SODIUM SERUM 135 mmol/L (136-145); TOTAL PROTEIN, SERUM 5.8 g/dL (6.4-8.2); UREA NITROGEN, BLOOD 6 mg/dL (7-18)
--- NOTE | 2022-07-13 06:40 | NUR ---
MANAGER LABOR DELIVERY CLOSING NOTE LEFT PATIENT RESTING IN BED. NO ACUTE DISTRESS OBSERVED. RESPIRATORY EVEN AND UNLABORED IN ROOM AIR. PT ON RESTRAINT FOR SAFETY. SAFETY MEASURES IMPLEMENTED. BED IN LOW POSITION, AND BED ALARM IS ON AT ALL THE TIME. CALL LIGHT WITHIN REACH. SR UP X2. WILL ENDORSE TO LEAD INGOT MOLDER NURSE FOR ROBBY.
--- NOTE | 2022-07-13 07:22 | NUR ---
DIE CAST TECHNICIAN OPENING NOTES RECEIVED PATIENT AWAKE IN BED, A/Ox1, ITALIAN SPEAKING. ON ROOM AIR, NO S/S OF RESPIRATORY DISTRESS. IV ACCESS L AC #20G RUNNING D5 1/2 NS@ 75 ML/HR. INTACT AND PATENT. 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 NO S/S OF CHEST PAIN OR DISCOMFORT. PATIENT HAS BILATERAL SOFT WRIST RESTRAINTS. SKIN INTACT AND CIRCULATION WNL. PATIENT INCONTINENT USES DIAPER. SKIN ISSUES: BLE SCABS AND R WRIST SCAB. SAFETY MEASURES IN PLACE: BED LOCKED AND IN LOWEST POSITION, HOB ELEVATED, CALL LIGHT WITHIN REACH, SIDE RAILS UPx2, CALL LIGHT WITHIN REACH. WILL CONTINUE TO MONITOR.
[2022-07-13] MEDS: METOPROLOL TARTRATE 50 MG TABLET PO SCH ×2 (09:00→21:12)
[2022-07-13] MEDS: ENOXAPARIN SODIUM 30 MG/0.3 ML DISP.SYRIN SQ SCH (09:00)
[2022-07-13] MEDS: CITALOPRAM HYDROBROMIDE 10 MG TABLET PO SCH (09:05)
[2022-07-13] MEDS: OLANZAPINE 2.5 MG TABLET PO SCH ×2 (09:05→12:03)
[2022-07-13] MEDS: BENZTROPINE MESYLATE (1 MG) 1 MG TABLET PO SCH ×2 (09:05→16:51)
[2022-07-13] MEDS: DIVALPROEX SODIUM 250 MG TABLET.DR PO SCH ×4 (09:05→21:11)
[2022-07-13] MEDS: CARBIDOPA/LEVODOPA 25/100 MG 1 UDTAB PO SCH ×4 (09:05→21:11)
[2022-07-13] MEDS: PANTOPRAZOLE 40 MG/PACK PACK PO SCH ×2 (09:05→21:11)
[2022-07-13] MEDS: DOCUSATE SODIUM 100 MG CAPSULE PO SCH ×2 (09:05→16:51)
--- NOTE | 2022-07-13 16:51 | NUR ---
RN NOTES PATIENT REFUSED EVENING MEDICATION. BEGAN TO SPIT AT RN AND OPERATIONS AND INTELLIGENCE ASSISTANT. WILL CONTINUE TO MONITOR.
--- NOTE | 2022-07-13 18:53 | NUR ---
MS RN CLOSING NOTES PATIENT AWAKE IN BED, A/Ox1, GERMAN SPEAKING. STABLE ON ROOM AIR, NO S/S OF RESPIRATORY DISTRESS. IV ACCESS L AC #20G S/L. INTACT AND PATENT. NO S/S OF CHEST PAIN OR DISCOMFORT. PATIENT HAS BILATERAL SOFT WRIST RESTRAINTS. SKIN INTACT AND CIRCULATION WNL. PATIENT INCONTINENT USES DIAPER. SKIN ISSUES: BLE SCABS AND R WRIST SCAB. SAFETY MEASURES MAINTAINED: BED LOCKED AND IN LOWEST POSITION, HOB ELEVATED, CALL LIGHT WITHIN REACH, SIDE RAILS UPx2, CALL LIGHT WITHIN REACH. WILL ENDORSE TO NEXT SHIFT ANY ROBBY.
--- NOTE | 2022-07-13 19:32 | NUR ---
DIGITAL SALES ASSISTANT OPENING NOTES; RECEIVED PATIENT AWAKE IN BED, A/Ox1, CONGOLESE SPEAKING. ON ROOM AIR MIGEL WELL SATTING 98%,NO SIGN SOB/DISTRESS NOTED,IV ACCESS L AC #20G RUNNING D5 1/2 NS@ 75 ML/HR RUNNING WELL,PATIENT HAS BILATERAL SOFT WRIST RESTRAINTS NOTED,SKIN INTACT AND CIRCULATION WNL.SAFETY MEASURES IN PLACE: BED LOCKED AND IN LOWEST POSITION,SIDE RAILS UPx2, CALL LIGHT WITHIN REACH. WILL CONTINUE TO MONITOR.
[2022-07-13] MEDS: OLANZAPINE 5 MG TABLET PO SCH (21:11)
[2022-07-13] MEDS: DONEPEZIL 5 MG TABLET PO SCH (21:11)
--- NOTE | 2022-07-14 06:27 | NUR ---
RN CLOSING NOTE; PATIENT AWAKE IN BED, A/Ox1, BRAZILIAN SPEAKING. ON ROOM AIR MIGEL WELL SATTING 98%,NO SIGN SOB/DISTRESS NOTED,DUE MEDS GIVEN ORDER,ALL NEEDS ATTENDED,IV ACCESS L AC #20G SL,PATENT AND INTACT,PT D/C TO HOME WITH FOLLOW UP HOME HEALTH,PATIENT HAS BILATERAL SOFT WRIST RESTRAINTS NOTED,SKIN INTACT AND CIRCULATION WNL.SAFETY MEASURES IN PLACE: BED LOCKED AND IN LOWEST POSITION,SIDE RAILS UPx2, CALL LIGHT WITHIN REACH. WILL ENDORSED TO NEXT SHIFT.
[2022-07-14 06:45] LABS: CALCIUM, SERUM 8.4 mg/dL (8.5-10.1); POTASSIUM 3.6 mmol/L (3.5-5.1)
--- NOTE | 2022-07-14 07:50 | NUR ---
MS RN OPENING NOTE RECEIVED PATIENT IN BED. ASLEEP AND AROUSABLE , CONFUSED, RESPONSIVE TO TACTILE, AND VERBAL STIMULI. RESPIRATIONS EVEN AND UNLABORED, ON ROOM AIR, AND TOLERATING ROOM AIR WELL. NO ACUTE DISTRESS OBSERVED. . IV ACCESS ON THE LAC G #20 , PATTENT AND INTACT , SKIN IS WARM TO TOUCH, KEEP CLEAN/DRY. HOB ELEVATED FOR ASPIRATION PRECAUTION. SAFETY MEASURES IN PLACE: BED IN LOWEST POSITION, SIDE RAILS UP X2, CALL LIGHT WITHIN REACH. WILL CONTINUE TO MONITOR PT.
--- NOTE | 2022-07-14 11:30 | NUR ---
FLOOR WORKER NOTES PATIENT IS WITH ORDER FOR DISCHARGE ИВАН K TO HIS FACILITY IN [facility] [place] DISCHARGE PAPERS WAS PREPARED AND REPORT WAS GIVEN TO AMBULANCE CREW , PATIENT IS A/0 X 1 AND UNABLE OT MAKE NEEDS KNOWN , BODY ASSESSMENT DONE AND PHOTOS TAKEN ; PERSONAL BELONGINGS WAS SENT WITH AMBULANCE CREW , PATIENT HAS 2 BLANKETS , IV ACCESS WAS REMOVED AND LEFT AROUND 0930, IN A STABLE CONDITION . CALLED TO THE FACILITY AROUND 1130 AND GAVE REPORT TO THE RN JUDY L[address]
== END 2022-07-14 09:30 | DRG 377 ==
LOC: ER 00:17 → TELE 03:25 → MED 07-13 15:59
PROVIDERS: ADMIT Internal Medicine
PROC: 0DB68ZX Excision of Stomach, Via Natural or Artificial Opening Endoscopic, Diagnostic (ICD-10-PCS; principal; 2022-07-09)
DX: K29.71 Gastritis, unspecified, with bleeding (principal); E43 Unspecified severe protein-calorie malnutrition; G93.41 Metabolic encephalopathy; N17.0 Acute kidney failure with tubular necrosis; I21.A1 Myocardial infarction type 2; F03.93 Unspecified dementia, unspecified severity, with mood disturbance; F03.94 Unspecified dementia, unspecified severity, with anxiety; E87.0 Hyperosmolality and hypernatremia; Z20.822 Contact with and (suspected) exposure to COVID-19; G20 Parkinson's disease; F02.80 Dementia in other diseases classified elsewhere, unspecified severity, without behavioral disturbance, psychotic disturbance, mood disturbance, and anxiety; Z95.1 Presence of aortocoronary bypass graft; I25.10 Atherosclerotic heart disease of native coronary artery without angina pectoris; E11.22 Type 2 diabetes mellitus with diabetic chronic kidney disease; E03.9 Hypothyroidism, unspecified; Z79.01 Long term (current) use of anticoagulants; Z79.899 Other long term (current) drug therapy; D64.9 Anemia, unspecified; I12.9 Hypertensive chronic kidney disease with stage 1 through stage 4 chronic kidney disease, or unspecified chronic kidney disease; E88.09 Other disorders of plasma-protein metabolism, not elsewhere classified; E80.4 Gilbert syndrome; N18.9 Chronic kidney disease, unspecified; K82.8 Other specified diseases of gallbladder; M19.90 Unspecified osteoarthritis, unspecified site; Z66 Do not resuscitate; Z79.02 Long term (current) use of antithrombotics/antiplatelets; N40.0 Benign prostatic hyperplasia without lower urinary tract symptoms; E87.6 Hypokalemia; N28.1 Cyst of kidney, acquired; K80.20 Calculus of gallbladder without cholecystitis without obstruction
CPT/HCPCS: 36415; 71045-TC; 74181-TC; 76700-TC; 76770-TC; 80048-TC; 80053-TC; 80061-TC; 80076-TC; 81001; 82272-TC; 82570-TC; 82728-TC; 83540-TC; 83605-TC; 83690-TC; 83735-TC; 84100-TC; 84155; 84165; 84300-TC; 84439-TC; 84443-TC; 84484-TC; 85025-TC; 85027-TC; 85730-TC; 87081-TC; 88305-TC; 88313-TC; 88342; 93307-TC; A4349; C9113; C9803; G0378; J1650; J2704; J2916; J3475; J3480; J3490; J7030; J7050; Q9967